=== PATIENT | male | born 1970 | race American Indian/Alaskan Native ===

== ENCOUNTER 2019-02-07 12:10 | Emergency (ER) | payer MEDICARE ==
[2019-02-07 12:23] VITALS: BP 125/83
--- NOTE | 2019-02-07 12:27 | Emergency Department Report ---
Blank Doc - Documentation Documentation: c/o of cough and congestion with runny nose. sputum production noted.
--- NOTE | 2019-02-07 14:42 | Emergency Department Report ---
- General Chief Complaint: Upper Respiratory Infection Stated Complaint: FLU Time Seen by Provider: 02/07/19 12:26 Source: patient Mode of arrival: Ambulatory Limitations: No Limitations - History of Present Illness Initial Comments: This is a 48-year-old male nontoxic, well nourished in appearance, no acute signs of distress presents to the ED with c/o of sore throat, frontal sinus pain, body aches, rhinorrhea, nasal congestion x2 days. Patient denies any cough. Patient denies any recent travels, long car, recent hospital stays. Patient denies any calf pain or calf tenderness. Patient denies any chest pain, short of breath, fever, chills, nausea, vomiting, hemoptysis, numbness, tingling, headache or stiff neck. MD Complaint: sore throat, rhinorrhea, nasal congestion, sinus pain -: days(s) (2) Severity: mild Severity scale (0 -10): 8 Quality: aching Consistency: constant Improves With: nothing Worsens With: nothing Associated Symptoms: rhinorrhea, nasal congestion, sore throat. denies: fever, chills, myalgias, diaphoresis, headache, stiff neck, cough, chest pain, shortness of breath, abdominal pain, nausea, vomiting, diarrhea, dysuria, rash, confusion, right sweats, weight loss, epistaxis, hoarseness, ear pain Treatments Prior to Arrival: none - Related Data Previous Rx's Medication Instructions Recorded Last Taken Type Ibuprofen [Motrin] 600 mg PO Q6H PRN #20 tablet 04/16/14 Unknown Rx Methocarbamol [Robaxin] 750 mg PO Q8H PRN #20 tablet 04/16/14 Unknown Rx traMADol [Ultram 50 MG tab] 50 mg PO Q6HR PRN #20 tablet 04/16/14 Unknown Rx Amoxicillin/K Clav Tab [Augmentin 1 tab PO Q12HR #20 tab 02/07/19 Unknown Rx 875 mg] Ibuprofen [Motrin] 600 mg PO Q8H PRN #20 tablet 02/07/19 Unknown Rx Allergies Allergy/AdvReac Type Severity Reaction Status Date / Time acetaminophen [From Vicodin] Allergy Rash Verified 04/15/14 22:26 codeine Allergy Hives Verified 02/07/19 12:13 hydrocodone bitartrate Allergy Rash Verified 04/15/14 22:26 [From Vicodin] ED Review of Systems ROS: Stated complaint: FLU Other details as noted in HPI Constitutional: denies: chills, fever Eyes: denies: eye pain, eye discharge, vision change ENT: throat pain, congestion. denies: ear pain Respiratory: denies: cough, shortness of breath, wheezing Cardiovascular: denies: chest pain, palpitations Endocrine: no symptoms reported Gastrointestinal: denies: abdominal pain, nausea, diarrhea Genitourinary: denies: urgency, dysuria Musculoskeletal: denies: back pain, joint swelling, arthralgia Skin: denies: rash, lesions Neurological: denies: headache, weakness, paresthesias Psychiatric: denies: anxiety, depression Hematological/Lymphatic: denies: easy bleeding, easy bruising ED Past Medical Hx - Past Medical History Hx Kidney Stones: Yes - Surgical History Additional Surgical History: lithotrypsy - Social History Smoking Status: Never Smoker Substance Use Type: None - Medications Home Medications: Home Medications Medication Instructions Recorded Confirmed Last Taken Type Ibuprofen [Motrin] 600 mg PO Q6H PRN #20 tablet 04/16/14 Unknown Rx Methocarbamol [Robaxin] 750 mg PO Q8H PRN #20 tablet 04/16/14 Unknown Rx traMADol [Ultram 50 MG tab] 50 mg PO Q6HR PRN #20 tablet 04/16/14 Unknown Rx Amoxicillin/K Clav Tab [Augmentin 1 tab PO Q12HR #20 tab 02/07/19 Unknown Rx 875 mg] Ibuprofen [Motrin] 600 mg PO Q8H PRN #20 tablet 02/07/19 Unknown Rx ED Physical Exam - General Limitations: No Limitations General appearance: alert, in no apparent distress - Head Head exam: Present: atraumatic, normocephalic - Eye Eye exam: Present: normal appearance - ENT ENT exam: Present: normal exam, normal orophraynx - Neck Neck exam: Present: normal inspection, full ROM. Absent: tenderness, meningismus, lymphadenopathy - Respiratory Respiratory exam: Present: normal lung sounds bilaterally. Absent: respiratory distress, wheezes, rales, rhonchi, stridor, chest wall tenderness, accessory muscle use, decreased breath sounds, prolonged expiratory - Cardiovascular Cardiovascular Exam: Present: regular rate, normal rhythm, normal heart sounds. Absent: bradycardia, tachycardia, irregular rhythm, systolic murmur, diastolic murmur, rubs, gallop - Extremities Exam Extremities exam: Present: normal inspection, full ROM - Back Exam Back exam: Present: normal inspection, full ROM - Neurological Exam Neurological exam: Present: alert, oriented X3 - Psychiatric Psychiatric exam: Present: normal affect, normal mood - Skin Skin exam: Present: warm, dry, intact, normal color. Absent: rash ED Course Vital Signs 02/07/19 12:22 Temperature 97.8 F Pulse Rate 65 Respiratory 20 Rate Blood Pressure 125/83 O2 Sat by Pulse 100 Oximetry - Reevaluation(s) Reevaluation #1: 02/07/19 14:39 Patient is speaking in full sentences with no signs of distress noted. ED Medical Decision Making - Medical Decision Making This is a 48-year-old male that presents with sinusitis. Patient is stable and was examined by me. Due to patient having symptoms of upper respiratory infection and worsening I will treat patient empirically with augmentin. Patient was instructed to increase hydration, rest and take Motrin for fever episodes. Vitals stable. Patient is nonfebrile and normal heart rate. Patient was instructed Follow-up with a primary care doctor in 3-5 days or if symptoms worsen and continue return to emergency room as soon as possible. At time time of discharge, the patient does not seem toxic or ill in appearance. No acute signs of distress noted. Patient agrees to discharge treatment plan of care. No further questions noted by the patient. Critical care attestation.: If time is entered above; I have spent that time in minutes in the direct care of this critically ill patient, excluding procedure time. ED Disposition Clinical Impression: Sinusitis Qualifiers: Sinusitis location: frontal Chronicity: acute Recurrence: non-recurrent Qualified Code(s): J01.10 - Acute frontal sinusitis, unspecified Disposition: - TO HOME OR SELFCARE Is pt being admited?: No Does the pt Need Aspirin: No Condition: Stable Instructions: Sinusitis (ED) Additional Instructions: Follow-up with a primary care doctor in 3-5 days or if symptoms worsen and continue return to emergency room as soon as possible. Prescriptions: Amoxicillin/K Clav Tab [Augmentin 875 mg] 1 tab PO Q12HR #20 tab Ibuprofen [Motrin] 600 mg PO Q8H PRN #20 tablet PRN Reason: Pain Referrals: ROSALIND OLGUIN MD [Primary Care Provider] - 3-5 Days [facility]IMARY [facility]ARE,MD [Referring] - 3-5 Days JANETTE BYNUM MD [Staff Physician] - 3-[address] [facility] [Outside] - 3-5 Days [facility] [Outside] - 3-5 Days Forms: Work/School Release Form(ED)
== END 2019-02-07 15:05 | disposition home or self-care (01) ==
LOC: ED 12:10
DX: J01.10 Acute frontal sinusitis, unspecified (principal)
CPT/HCPCS: 99282

== ENCOUNTER 2022-07-15 17:59 | Emergency (ER) | payer MEDICARE ==
[2022-07-15] MEDS ORDERED: SODIUM CHLORIDE 0.9% 1000 ML 1,000 ML IV ONE (21:00)
[2022-07-15] MEDS ORDERED: ONDANSETRON 4 MG/2 ML INJ IV ONE (21:00)
--- NOTE | 2022-07-15 21:03 | Emergency Department Report ---
ED Abdominal Pain HPI - General Chief Complaint: Dyspnea/Respdistress Stated Complaint: LUISANA/SLURR SPEECH/FEVER/BODY ACHE Time Seen by Provider: 07/15/22 20:58 Source: patient, family Mode of arrival: Wheelchair Limitations: Physical Limitation - History of Present Illness MD Complaint: abdominal pain -: Gradual Location: LLQ Radiation: suprapubic, L flank Severity: mild, moderate Severity scale (0 -10): 6 Quality: cramping, dull Consistency: constant Associated Symptoms: nausea. denies: vomiting, diarrhea, dysuria, hematemesis, hematuria, anorexia - Related Data Previous Rx's Medication Instructions Recorded Last Taken Type Ibuprofen [Motrin] 600 mg PO Q6H PRN #20 tablet 04/16/14 Unknown Rx methOCARBAMOL [Robaxin] 750 mg PO Q8H PRN #20 tablet 04/16/14 Unknown Rx traMADoL [Ultram 50 MG tab] 50 mg PO Q6HR PRN #20 tablet 04/16/14 Unknown Rx Amoxicillin/K Clav Tab [Augmentin 1 tab PO Q12HR #20 tab 02/07/19 Unknown Rx 875 mg] Ibuprofen [Motrin] 600 mg PO Q8H PRN #20 tablet 02/07/19 Unknown Rx Ketorolac [Toradol] 10 mg PO Q6H PRN #15 tablet 07/15/22 Unknown Rx Nitrofurantoin Sherman/M-Cryst 100 mg PO Q12HR #20 capsule 07/15/22 Unknown Rx [Macrobid CAP] Allergies Allergy/AdvReac Type Severity Reaction Status Date / Time acetaminophen [From Vicodin] Allergy Rash Verified 07/15/22 18:17 codeine Allergy Hives Verified 07/15/22 18:17 hydrocodone bitartrate Allergy Rash Verified 07/15/22 18:17 [From Vicodin] ED Review of Systems ROS: Stated complaint: LUISANA/SLURR SPEECH/FEVER/BODY ACHE Other details as noted in HPI Comment: All other systems reviewed and negative ED Past Medical Hx - Past Medical History Hx Kidney Stones: Yes - Surgical History Additional Surgical History: lithotrypsy - Social History Smoking Status: Never Smoker Substance Use Type: None - Medications Home Medications: Home Medications Medication Instructions Recorded Confirmed Last Taken Type Ibuprofen [Motrin] 600 mg PO Q6H PRN #20 tablet 04/16/14 Unknown Rx methOCARBAMOL [Robaxin] 750 mg PO Q8H PRN #20 tablet 04/16/14 Unknown Rx traMADoL [Ultram 50 MG tab] 50 mg PO Q6HR PRN #20 tablet 04/16/14 Unknown Rx Amoxicillin/K Clav Tab [Augmentin 1 tab PO Q12HR #20 tab 02/07/19 Unknown Rx 875 mg] Ibuprofen [Motrin] 600 mg PO Q8H PRN #20 tablet 02/07/19 Unknown Rx Ketorolac [Toradol] 10 mg PO Q6H PRN #15 tablet 07/15/22 Unknown Rx Nitrofurantoin Sherman/M-Cryst 100 mg PO Q12HR #20 capsule 07/15/22 Unknown Rx [Macrobid CAP] ED Physical Exam - General Limitations: Physical Limitation General appearance: alert, in no apparent distress, other (perspiration ) - Head Head exam: Present: atraumatic, normocephalic - Eye Eye exam: Present: normal appearance - ENT ENT exam: Present: normal exam, mucous membranes moist - Neck Neck exam: Present: normal inspection - Respiratory Respiratory exam: Present: normal lung sounds bilaterally. Absent: respiratory distress - Cardiovascular Cardiovascular Exam: Present: regular rate, normal rhythm. Absent: systolic murmur, diastolic murmur, rubs, gallop - GI/Abdominal GI/Abdominal exam: Present: soft, tenderness, rebound, normal bowel sounds. Absent: organomegaly, bruit - Rectal Rectal exam: Present: deferred - Extremities Exam Extremities exam: Present: normal inspection - Back Exam Back exam: Present: normal inspection. Absent: CVA tenderness (R), CVA tenderness (L) - Neurological Exam Neurological exam: Present: alert, oriented X3, CN II-XII intact - Psychiatric Psychiatric exam: Present: normal affect, normal mood - Skin Skin exam: Present: warm, dry, intact, normal color. Absent: rash ED Course Vital Signs 07/15/22 07/15/22 07/16/22 18:08 21:09 01:14 Temperature 98.2 F 97.5 F L Pulse Rate 76 72 74 Respiratory 18 14 12 Rate Blood Pressure 126/90 146/91 133/87 [Left] O2 Sat by Pulse 100 100 100 Oximetry ED Medical Decision Making - Lab Data Result diagrams: 07/15/22 21:09 07/15/22 21:09 Critical care attestation.: If time is entered above; I have spent that time in minutes in the direct care of this critically ill patient, excluding procedure time. ED Disposition Clinical Impression: Renal calculus, left Disposition: 01 HOME / SELF CARE / HOMELESS Is pt being admited?: No Does the pt Need Aspirin: No Condition: Stable Instructions: Low-Purine Eating Plan, Kidney Stones, [id number], Dietary Guidelines to Help Prevent Kidney Stones Additional Instructions: You have been evaluated emergency department today for abdominal pain. Your evaluation did not show evidence of any medical conditions requiring emergent intervention at this time. Your CT scan did show evidence of a kidney stone to the left you PJ 29 mm along with abdominal multiple kidney stones as well as evidence of a looming urinary tract infection you have been treated accordingly with antibiotics emergency department need to continue antibiotics on outpatient basis he also has been prescribed some pain medication in conjunction with your current allergy profile. Please be sure to follow-up with urology for definitive treatment as you will need urology to help resolve this kidney stone issue as you have had in the past on more than 9 other occasions per your reported history Please schedule an appointment with urology and your primary care physician. Return to emergency department if you experience worsening uncontrolled pain, fevers of 100.4 or greater, recurrent vomiting, inability to tolerate food or fluids by mouth, bloody stools or vomit, black tarry stools, or any other concerning symptoms. Prescriptions: Nitrofurantoin Sherman/M-Cryst [Macrobid CAP] 100 mg PO Q12HR #20 capsule Ketorolac [Toradol] 10 mg PO Q6H PRN #15 tablet PRN Reason: Pain Referrals: DANIELA LEWIS [Provider Group] - 3-5 Days PRIMARY CAREMD [Referring] - 3-5 Days
--- NOTE | 2022-07-15 21:16 | XRay Report ---
CHEST 1 VIEW INDICATION: fever, sob. COMPARISON: None FINDINGS: SUPPORT DEVICES: None. HEART: Within normal limits. LUNGS/PLEURA: Minimal subtle patchy bibasilar predominant airspace opacities with no dense consolidat ion or effusion. ADDITIONAL FINDINGS: None. IMPRESSION: 1. Lung findings as above. Consider an atypical etiology. Signer Name: Ibrahima Patterson MD Signed: 07/15/2022 9:12 PM Workstation Name: [id number]
[2022-07-15 21:21] LABS: Basophils # (Auto) 0.1 K/mm3 (0.0-0.1); Basophils % (Auto) 1.3 % (0.0-1.8); Hematocrit 46.5 % (35.5-45.6); Lymphocytes # (Auto) 0.6 K/mm3 (1.2-5.4); Lymphocytes % (Auto) 6.6 % (13.4-35.0); Mean Corpuscular HGB Conc 34 % (32-34); Mean Corpuscular Volume 92 fl (84-94); Monocytes # (Auto) 0.9 K/mm3 (0.0-0.8); Monocytes % (Auto) 10.1 % (0.0-7.3); Platelet Count 290 K/mm3 (140-440); Red Blood Count 5.07 M/mm3 (3.65-5.03); Red Cell Distribution Width 13.4 % (13.2-15.2)
[2022-07-15 21:45] LABS: Alanine Aminotransferase 18 units/L (7-56); Albumin 5.1 g/dL (3.9-5); BUN/Creatinine Ratio 19; Blood Urea Nitrogen 19 mg/dL (9-20); Calcium 10.4 mg/dL (8.4-10.2); Hemolysis Index 20
[2022-07-15 21:46] LABS: Bilirubin,Direct < 0.2 mg/dL (0-0.2)
[2022-07-15 22:57] LABS: Color,Urine Straw (Yellow)
[2022-07-15 23:01] LABS: Mucus,Urine FEW /HPF
[2022-07-15 23:02] LABS: WBC,Urine < 1.0 /HPF (0.0-6.0)
--- NOTE | 2022-07-15 23:02 | Cat Scan Report ---
CT ABDOMEN AND PELVIS WITH CONTRAST INDICATION / CLINICAL INFORMATION: Abdominal Pain 100ml of [id number] . TECHNIQUE: Axial CT images were obtained through the abdomen and pelvis after IV contrast. All CT sc ans at this location are performed using CT dose reduction for ALARA by means of automated exposure c ontrol. COMPARISON: None available. FINDINGS: LOWER CHEST: No significant abnormality of the imaged chest. LIVER: Subcentimeter focus of hypoattenuation underlies anterior margin of the medial segment left he patic lobe. Additional subcentimeter foci of hypoattenuation noted within the lateral segment left he patic lobe. These lesions are too small to further characterize. Liver otherwise unremarkable. Portal and hepatic veins are patent. GALLBLADDER / BILE DUCTS: No significant abnormality. Biliary ducts grossly unremarkable. SPLEEN: No significant abnormality. PANCREAS: No significant abnormality. ADRENALS: No significant abnormality. KIDNEYS/URETERS: 9 mm stone left UPJ resulting in moderate to severe left hydronephrosis. Delayed lef t renal nephrogram is present. Additional left-sided nephroliths are demonstrated. The right kidney d emonstrates subcentimeter to centimeter sized hypoattenuating lesion within the lower pole thought re flect cysts. The right kidney is otherwise unremarkable. STOMACH / DUODENUM / SMALL BOWEL: The stomach, duodenum, and small bowel demonstrate no significant a bnormality. No specific abnormality of the mesentery demonstrated. COLON: No significant abnormality. APPENDIX: No significant abnormality. PERITONEUM: No free air or free fluid are present within the abdomen or pelvis. LYMPH NODES: No significant adenopathy. AORTA / ARTERIES: No significant abnormality. IVC / VEINS: No significant abnormality. URINARY BLADDER: No significant abnormality. REPRODUCTIVE ORGANS: No significant abnormality. SKELETAL SYSTEM: No significant abnormality. ADDITIONAL ABDOMINAL/PELVIC FINDINGS: None. IMPRESSION: 1. Large proximal left ureteral stone at or just distal the left UPJ resulting in moderate to severe hydronephrosis and subtle delay in the left renal nephrogram. 2. Multiple additional left-sided nephroliths. Signer Name: Brian Mckenzie II, MD Signed: 07/15/2022 10:57 PM Workstation Name: [id number]
[2022-07-15] MEDS ORDERED: MORPHINE 4 MG/1 ML INJ IV STA (23:08)
[2022-07-15] MEDS ORDERED: cefTRIAXone/NS 1 GM/50 ML 1 GM/50 ML BAG IV STA (23:21)
[2022-07-15] MEDS ORDERED: ONDANSETRON 4 MG/2 ML INJ IV STA (23:32)
[2022-07-16 01:15] VITALS: BP 133/87
== END 2022-07-16 01:15 | disposition home or self-care (01) ==
LOC: ED 17:59
DX: N20.0 Calculus of kidney (principal); Z91.09 Other allergy status, other than to drugs and biological substances
CPT/HCPCS: 36415; 71045; 74177; 80048; 80076; 81001; 83690; 85025; 96361; 96365; 96375; 96376; 99284; J0696; J2270; J2405; J7030; Q9967